=== PATIENT | male | born 1960 | race Caucasian/White ===

== ENCOUNTER 2020-02-16 07:12 | Day surgery (SDC) | payer BC, OTHER ==
[2020-02-16] MEDS ORDERED: Lidocaine 1% PF 2 ML SDV INJECT ONE (07:13)
[2020-02-16] MEDS ORDERED: Propofol 200 MG/20 ML SDV IV ONE (07:13)
[2020-02-16] MEDS ORDERED: Sodium Chloride 0.9% 10 ML Syringe FLUSH PRN (08:30)
[2020-02-16] MEDS ORDERED: Lactated Ringers 1,000 ML IV SCH (08:30)
--- NOTE | 2020-02-16 10:10 | PCM.OPNOTE ---
- General Post-Op/Procedure Note Date of Surgery/Procedure: 02/16/20 Operative Procedure(s): c scope with biopsy Findings: transverse colon polyp Pre Op Diagnosis: screening Post-Op Diagnosis: colon polyp Anesthesia Technique: MAC Primary Surgeon: Alverto Richards Anesthesia Provider: Raman Waddell Pathology: transverse colon polyp Complications: None Condition: Good Free Text/Narrative:: see dictation
[2020-02-16 10:35] VITALS: BP 137/44; PULSE 65
--- NOTE | 2020-02-16 15:22 | OR ---
DATE OF OPERATION: 02/16/2020 SURGEON: Alverto Richards MD PROCEDURE PERFORMED: Colonoscopy with cold forceps biopsy. PREOPERATIVE DIAGNOSIS: Need for colon cancer screening. POSTOPERATIVE DIAGNOSIS: Transverse colon polyp. INDICATIONS FOR PROCEDURE: This is a 60-year-old white male who presents for screening colonoscopy. He was offered and accepted same. DESCRIPTION OF OPERATION: After an excellent IV sedation was administered, digital rectal exam was performed. No marked abnormality was noted. The flexible colonoscope was inserted and advanced to the cecum. Prep was excellent. Following findings were noted: Ascending colon, unremarkable. Transverse colon, unremarkable, except for small 3 mm polyp, biopsied with cold biopsy forceps and sent for permanent. Descending colon, unremarkable. Sigmoid and rectum, unremarkable. Results will be sent to the patient via letter. /[id number] /MODL
== END 2020-02-16 11:15 | disposition home or self-care (01) ==
LOC: FB.SDS 07:12
PROVIDERS: ATTEND Surgery
DX: Z12.11 Encounter for screening for malignant neoplasm of colon (principal); D12.3 Benign neoplasm of transverse colon; E11.9 Type 2 diabetes mellitus without complications; Z79.84 Long term (current) use of oral hypoglycemic drugs; Z79.899 Other long term (current) drug therapy
CPT/HCPCS: 00812-QZ; 82962; 88305; J2001; J2704; J7120

== ENCOUNTER 2022-07-24 08:45 | Emergency (ER) | payer OTHER ==
[2022-07-24] MEDS ORDERED: Lidocaine 2% 20 ML MDV INFILT ONE (08:46)
[2022-07-24] MEDS ORDERED: Diphtheria/Tetanus Toxoids,Adult (Td) 0.5 ML SDV IM ONE (09:54)
[2022-07-24] MEDS ORDERED: Diphtheria,Pertussis(Acell),Tetanus Vaccine 0.5 ML Syringe IM ONE (09:59)
[2022-07-24 10:08] VITALS: BP 141/86; PULSE 85
== END 2022-07-24 10:04 | disposition home or self-care (01) ==
LOC: FB.ED 08:45
DX: S61.012A Laceration without foreign body of left thumb without damage to nail, initial encounter (principal); E11.9 Type 2 diabetes mellitus without complications; Z79.899 Other long term (current) drug therapy; Z23 Encounter for immunization; W26.8XXA Contact with other sharp object(s), not elsewhere classified, initial encounter
CPT/HCPCS: 12001; 90471; 90715; 99282-25

== ENCOUNTER 2022-08-13 17:19 | Emergency (ER) | payer OTHER ==
[2022-08-13] MEDS: Sodium Chloride 0.9% 10 ML Syringe FLUSH PRN ×2 (17:45→18:04)
[2022-08-13] MEDS ORDERED: Alum Hydroxide/Mag Hydroxide 15 ML, Lidocaine 2% 15 ML PO ONE ×2 (17:46)
[2022-08-13] MEDS ORDERED: HYDROmorphone 2 MG/ML SDV IVPUSH ONE ×2 (17:46→19:51)
[2022-08-13] MEDS ORDERED: Sucralfate 1 GM Tab PO ONE (17:46)
[2022-08-13] MEDS ORDERED: Aspirin 81 MG Tab.Chew PO ONE (18:02)
[2022-08-13 18:16] LABS: ESTIMATED GFR 105 mL/min (>60)
[2022-08-13] MEDS ORDERED: Sodium Chloride 0.9% 1,000 ML IV ONE ×2 (18:38→19:51)
[2022-08-13] MEDS ORDERED: Piperacillin/Tazobactam 4.5 GM in Sodium Chloride 0.9% 100 ML IV SCH (18:45)
[2022-08-13] MEDS ORDERED: Iopamidol 755 Mg/ML 100 ML Bottle IV ONE (19:15)
[2022-08-13] MEDS ORDERED: Ondansetron 4 MG/2 ML SDV ONE (20:01)
[2022-08-13] MEDS ORDERED: Pantoprazole 40 MG Vial IVPUSH ONE (20:02)
[2022-08-13] MEDS ORDERED: Ondansetron 4 MG/2 ML SDV IVPUSH ONE (20:03)
[2022-08-13 20:53] VITALS: BP 142/88; PULSE 120
[2022-08-14] MEDS ORDERED: Iopamidol 755 Mg/ML 100 ML Bottle IV ONE (00:30)
== END 2022-08-13 20:40 ==
LOC: FB.ED 17:19
DX: K76.6 Portal hypertension (principal); K74.60 Unspecified cirrhosis of liver; E66.9 Obesity, unspecified; E11.9 Type 2 diabetes mellitus without complications; F10.10 Alcohol abuse, uncomplicated; Z79.82 Long term (current) use of aspirin; Z79.84 Long term (current) use of oral hypoglycemic drugs
CPT/HCPCS: 36415; 71045; 74177; 80053; 80307; 83605; 83690; 83735; 83880; 84484; 85025; 86140; 87040; 93005; 96361; 96365; 96375; 96376; 99285-25; A9270-GY; C9113; J1170; J2405; J2543; J3490; J7030

== ENCOUNTER 2023-10-13 21:57 | Emergency (ER) | payer OTHER ==
[2023-10-13 22:09] VITALS: BP 130/58; PULSE 95
[2023-10-13] MEDS: Sodium Chloride 0.9% 10 ML Syringe FLUSH PRN (22:41)
[2023-10-13] MEDS: Sodium Chloride 0.9% 1,000 ML IV SCH (22:42)
[2023-10-13 23:01] LABS: BASOPHILS PERCENT AUTO 0.2 % (0.3-3.8); BLOOD UREA NITROGEN,BUN 11 mg/dL (7-18); BUN/CREATININE RATIO 13.8 (9-20); CALCIUM 8.1 mg/dL (8.6-10.2); CARBON DIOXIDE,CO2 26 mmol/L (21-32); CHLORIDE,CL 103 mmol/L (100-110); CREATININE 0.8 mg/dL (0.70-1.30); EOSINOPHILS ABSOLUTE AUTO 0.1 x10-3/uL (0.0-0.6); EOSINOPHILS PERCENT AUTO 0.8 % (0.1-6.8); ESTIMATED GFR 101 mL/min (>60); GLUCOSE RANDOM 148 mg/dL (80-116); HEMATOCRIT 31.7 % (38.3-50.1); HEMOGLOBIN 9.9 g/dL (12.9-17.7); LYMPHOCYTES ABSOLUTE AUTO 0.8 x10-3/uL (0.5-4.5); LYMPHOCYTES PERCENT AUTO 11.2 % (15.8-45.3); MEAN CORPUSCULAR HGB CONC 31.3 g/dL (28.7-35.3); MEAN CORPUSCULAR VOLUME 67.1 fL (80.8-98.7); MEAN PLATELET VOLUME 8.6 fL (6.7-11.0); MONOCYTES ABSOLUTE AUTO 1.1 x10-3/uL (0.0-1.2); MONOCYTES PERCENT AUTO 15.3 % (5.5-15.2); NEUTROPHILS ABSOLUTE AUTO 5.1 x10-3/uL (1.7-6.9); NEUTROPHILS PERCENT AUTO 72.5 % (40.3-71.8); PLATELET COUNT,PLT 116 x10(3)uL (117-477); POTASSIUM,K 3.2 mmol/L (3.5-5.3); RED BLOOD CELL COUNT 4.72 x10(6)uL (3.90-5.90); RED CELL DISTRIBUTION WIDTH 19.3 % (12.4-15.0); SODIUM,NA 138 mmol/L (135-145); WHITE BLOOD CELL COUNT,WBC 7.1 x10-3/uL (3.2-10.1)
[2023-10-13 23:17] LABS: LACTIC ACID 2.5 mmol/L (0.4-2.0)
[2023-10-13 23:39] LABS: BILIRUBIN,URINE SMALL (NEGATIVE); GLUCOSE,URINE 250 mg/dL (NORMAL); KETONES,URINE NEGATIVE (NEGATIVE); LEUKOCYTE ESTERASE,URINE NEGATIVE (NEGATIVE); NITRITE,URINE NEGATIVE (NEGATIVE); OCCULT BLOOD,URINE NEGATIVE (NEGATIVE); PROTEIN,URINE TRACE mg/dL (NEGATIVE)
[2023-10-13] MEDS: Acetaminophen 325 MG Tab PO ONE (23:39)
[2023-10-13 23:40] LABS: APPEARANCE,URINE CLEAR (CLEAR); COLOR,URINE YELLOW (YELLOW); UROBILINOGEN,URINE >=12 mg/dL (NEGATIVE)
[2023-10-14 00:12] LABS: INFLUENZA A NAA NEGATIVE (NEGATIVE); INFLUENZA B NAA NEGATIVE (NEGATIVE); RESPIRATORY SYNCYTIAL VIR NAA NEGATIVE (NEGATIVE)
[2023-10-14 00:13] LABS: CORONAVIRUS COVID-19 NAA NEGATIVE (NEGATIVE)
== END 2023-10-14 00:10 | disposition home or self-care (01) ==
LOC: FB.ED 21:57
DX: R50.82 Postprocedural fever (principal); E11.69 Type 2 diabetes mellitus with other specified complication; E66.9 Obesity, unspecified; Z79.82 Long term (current) use of aspirin; Z79.84 Long term (current) use of oral hypoglycemic drugs
CPT/HCPCS: 0241U; 36415; 71046; 80048; 81003; 83605; 85025; 86140; 87040; 99283; J3490; J7030